=== PATIENT | male | born 1975 | race Caucasian/White ===

== ENCOUNTER → 2016-09-27 | Outpatient (CLI) | payer OTHER ==
[~2016-09-27] MED LIST: ATOR1TAB21 PO; DILA100C PO; ENAL20TA PO; ESCI10TA2 PO; MULT1TAB8 PO; OMEP40CA2 PO; TEGR200T PO
--- NOTE | 2016-09-27 12:07 | REP ---
SCROTAL ULTRASOUND: Real-time sonographic evaluation of the scrotum and contents performed. Testicles are normal in size and echotexture, right testicle measuring 4.8 x 2.4 x 3.4 cm and left testicle 4.4 x 2.5 x 3.3 cm. There are a few tiny scattered calcifications in the testicles. No testicular mass or torsion is seen. There is blood flow seen in each testicle with duplex Doppler evaluation, RI of the right testicle 0.57, left testicle 0.54. A couple of tiny cysts are seen in the head of the left epididymis. There are small hydroceles. IMPRESSION: No testicular mass or torsion. Signed by Vernon Drake MD 09/27/2016 04:37 P
== END ==
LOC: M SMT 09:32
PROVIDERS: ATTEND Nurse Practitioner Women's Health
DX: N50.819 Testicular pain, unspecified (principal)

== ENCOUNTER → 2017-03-29 | Outpatient (REF) ==
--- NOTE | 2017-03-30 01:03 | REP ---
Clinical: Pain and disability. Technique: AP, lateral, coned-down views of the lumbosacral spine. Findings: Mild chronic levoconvex scoliosis appreciated. Lordosis remains stable on the lateral projection. Advanced degenerative disc osteophyte complex at the L4-5 level includes marginal osteophytes, endplate sclerosis and disc space narrowing with hypertrophic facet changes. Moderate multilevel degenerative changes noted throughout the remainder of the lower thoracic and lumbosacral spine including minimal endplate sclerosis/irregularity with disc space narrowing. No acute fracture / compression injury or subluxation. Impression: Focal advanced degenerative changes at the L4-5 level with moderate degenerative changes noted at the remainder of the lumbar spine. 2. No acute fracture / compression injury or subluxation. Signed by Anibal Redman MD 03/30/2017 12:55 A
== END ==
LOC: M SMT 14:34
PROVIDERS: ATTEND Internal Medicine
DX: M51.36 Other intervertebral disc degeneration, lumbar region (principal)

== ENCOUNTER 2019-01-22 11:19 | Day surgery (SDC) | payer OTHER ==
[~2019-01-22] VITALS: Ht 193 cm; Wt 117.0 kg
[~2019-01-22 11:19] MED LIST changes: +BISAC5TA PO; +BREO1INH3 INH; +DESV100T3 PO; +DICY20TA11 PO; +HYDR-3713 PO; +IBUP80TA PO; +LIDOCAINE 2% INJ 100 MG/5 ML SDV (FOR ANES.) As Ordered ONE; +NS 1,000 ML IV ONE; -OMEP40CA2 PO; +OMEP40CA97 PO; +SUCR1TAB56 PO; +TAMS1CAP17 PO; +TRAZ150T90 PO; +VENTAER INH; +fentaNYL 100 MCG/2 ML INJECTION (J3010) As Ordered ONE; +propofoL 200 MG/20 ML VIAL As Ordered ONE
[2019-01-22] MEDS ORDERED: propofoL 200 MG/20 ML VIAL As Ordered ONE (13:39)
--- NOTE | 2019-01-22 14:28 | ROOR ---
Patient Name: Vicente Chan Procedure Date: 01/22/2019 1:12 PM Date of : 1975 Age: 43 Room: [facility] Gender: Male Note Status: Finalized Procedure: Upper GI endoscopy Indications: Dysphagia, Weight loss Providers: Kurt Marcum MD Referring MD: Nakul CA MD Requesting Provider: Medicines: Monitored Anesthesia Care Complications: No immediate complications. Procedure: Pre-Anesthesia Assessment: - Prior to the procedure, a History and Physical was performed, and patient medications and allergies were reviewed. The patient is competent. The risks and benefits of the procedure and the sedation options and risks were discussed with the patient. All questions were answered and informed consent was obtained. Patient identification and proposed procedure were verified by the physician, the nurse and the anesthesiologist in the procedure room. Mental Status Examination: alert and oriented. Airway Examination: normal oropharyngeal airway and neck mobility. Respiratory Examination: clear to auscultation. CV Examination: normal. Prophylactic Antibiotics: The patient does not require prophylactic antibiotics. Prior Anticoagulants: The patient has taken no previous anticoagulant or antiplatelet agents. ASA Grade Assessment: II - A patient with mild systemic disease. After reviewing the risks and benefits, the patient was deemed in satisfactory condition to undergo the procedure. The anesthesia plan was to use monitored anesthesia care (MAC). Immediately prior to administration of medications, the patient was re-assessed for adequacy to receive sedatives. The heart rate, respiratory rate, oxygen saturations, blood pressure, adequacy of pulmonary ventilation, and response to care were monitored throughout the procedure. The physical status of the patient was re-assessed after the procedure. The Endoscope was introduced through the mouth, and advanced to the second part of duodenum. The upper GI endoscopy was accomplished without difficulty. The patient tolerated the procedure well. Findings: The Z-line was irregular and was found 38 cm from the incisors. Normal mucosa was found in the entire esophagus. Two biopsies were obtained in the middle third of the esophagus with cold forceps for evaluation of eosinophilic esophagitis. Verification of patient identification for the specimen was done by the physician and nurse using the patient's name, date and medical record number. Estimated blood loss was minimal. A small hiatal hernia was present. Localized mild inflammation characterized by congestion (edema), erythema, granularity and shallow ulcerations was found in the gastric antrum. Four biopsies were obtained with cold forceps for histology from gastric ulcer in pre-pylori area, as well as two biopsies in the gastric antrum. The duodenal bulb and second portion of the duodenum were normal. Biopsies for histology were taken with a cold forceps for evaluation of celiac disease. Impression: - Z-line irregular, 38 cm from the incisors. - Normal mucosa was found in the entire esophagus. - Small hiatal hernia. - Gastritis. - Normal duodenal bulb and second portion of the duodenum. Biopsied. - Two biopsies were obtained in the middle third of the esophagus. - Biopsies performed from gastric ulcer in pre-pylori area and in the gastric antrum. Recommendation: - Patient has a contact number available for emergencies. The signs and symptoms of potential delayed complications were discussed with the patient. Return to normal activities tomorrow. Written discharge instructions were provided to the patient. - Resume previous diet. - Continue present medications. 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 - Await pathology results. - Return to GI clinic in [facility] (address [address], [address] [address]) in 4 -- 6 weeks. Please call GI clinic @ [phone] for apppointment date and time. - Return to primary care physician. Kurt Marcum MD Kurt Marcum MD 01/22/2019 2:28:24 PM Electronically signed by Kurt Marcum MD Number of Addenda: 0 Note Initiated On: 01/22/2019 1:12 PM Estimated Blood Loss: Estimated blood loss: none.
--- NOTE | 2019-01-22 14:31 | ROOR ---
Patient Name: Vicente Chan Procedure Date: 01/22/2019 1:13 PM Date of : 1975 Age: 43 Room: [facility] Gender: Male Note Status: Finalized Procedure: Colonoscopy Indications: Chronic diarrhea, Weight loss Providers: Kurt Marcum MD Referring MD: Nakul CA MD Requesting Provider: Medicines: Monitored Anesthesia Care Complications: No immediate complications. Procedure: Pre-Anesthesia Assessment: - Prior to the procedure, a History and Physical was performed, and patient medications and allergies were reviewed. The patient is competent. The risks and benefits of the procedure and the sedation options and risks were discussed with the patient. All questions were answered and informed consent was obtained. Patient identification and proposed procedure were verified by the physician, the nurse and the anesthesiologist in the procedure room. Mental Status Examination: alert and oriented. Airway Examination: normal oropharyngeal airway and neck mobility. Respiratory Examination: clear to auscultation. CV Examination: normal. Prophylactic Antibiotics: The patient does not require prophylactic antibiotics. Prior Anticoagulants: The patient has taken no previous anticoagulant or antiplatelet agents. ASA Grade Assessment: II - A patient with mild systemic disease. After reviewing the risks and benefits, the patient was deemed in satisfactory condition to undergo the procedure. The anesthesia plan was to use monitored anesthesia care (MAC). Immediately prior to administration of medications, the patient was re-assessed for adequacy to receive sedatives. The heart rate, respiratory rate, oxygen saturations, blood pressure, adequacy of pulmonary ventilation, and response to care were monitored throughout the procedure. The physical status of the patient was re-assessed after the procedure. The Colonoscope was introduced through the anus and advanced to the terminal ileum, with identification of the appendiceal orifice and IC valve. The colonoscopy was performed without difficulty. The patient tolerated the procedure well. The quality of the bowel preparation was fair. The terminal ileum, ileocecal valve, appendiceal orifice, and rectum were photographed. Scope insertion time was 4 minutes. Scope withdrawal time was 8 minutes. The total duration of the procedure was 12 minutes. Findings: The perianal and digital rectal examinations were normal. The terminal ileum appeared normal. Normal mucosa was found in the entire colon. Biopsies for histology were taken with a cold forceps from the right colon, left colon and rectosigmoid colon for evaluation of microscopic colitis. Verification of patient identification for the specimen was done by the physician and nurse using the patient's name, date and medical record number. Estimated blood loss was minimal. Non-bleeding external and internal hemorrhoids were found during retroflexion. The hemorrhoids were medium-sized. Impression: - The examined portion of the ileum was normal. - Normal mucosa in the entire examined colon. Biopsied. - Non-bleeding external and internal hemorrhoids. Recommendation: - Patient has a contact number available for emergencies. The signs and symptoms of potential delayed complications were discussed with the patient. Return to normal activities tomorrow. Written discharge instructions were provided to the patient. - High fiber diet. - Continue present medications. - Await pathology results. - Repeat colonoscopy in 5-10 years for screening purposes and because the bowel preparation was suboptimal. - Return to GI clinic in [facility] (address [address], [address], [place], [facility]) in 4 -- 6 weeks. Please call GI clinic @ [phone] for apppointment date and time. - Return to primary care physician. Kurt Marcum MD Kurt Marcum MD 01/22/2019 2:31:38 PM Electronically signed by Kurt Marcum MD Number of Addenda: 0 Note Initiated On: 01/22/2019 1:13 PM Estimated Blood Loss: Estimated blood loss was minimal.
[2019-01-22 14:35] VITALS: BP 125/92
== END 2019-01-22 14:45 | disposition home or self-care (01) ==
LOC: M OPP 11:19
PROVIDERS: ATTEND Internal Medicine Gastroenterology
DX: R19.7 Diarrhea, unspecified (principal); K64.8 Other hemorrhoids; K22.8 Other specified diseases of esophagus; K44.9 Diaphragmatic hernia without obstruction or gangrene; K29.70 Gastritis, unspecified, without bleeding; R63.4 Abnormal weight loss; R13.10 Dysphagia, unspecified
CPT/HCPCS: 43239; 45380; 88305; J3010

== ENCOUNTER → 2019-09-11 | Outpatient (CLI) | payer OTHER ==
[~2019-09-11] MED LIST changes: -LIDOCAINE 2% INJ 100 MG/5 ML SDV (FOR ANES.) As Ordered ONE; -NS 1,000 ML IV ONE; -fentaNYL 100 MCG/2 ML INJECTION (J3010) As Ordered ONE; -propofoL 200 MG/20 ML VIAL As Ordered ONE
--- NOTE | 2019-09-11 11:20 | REP ---
Clinical: Dyspnea . Comparison: None . Technique: PA and lateral. Findings: The mediastinum and cardiac silhouette are normal. The lung galindo are clear and without acute consolidation, effusion, or pneumothorax. The skeletal structures are intact and normal. Impression: 1. No acute cardiopulmonary process. Electronically Signed by Anibal Redman MD 09/11/2019 11:12 A
== END ==
LOC: M RAD 10:50
PROVIDERS: ATTEND Internal Medicine Pulmonary Disease
DX: R06.00 Dyspnea, unspecified (principal)

== ENCOUNTER → 2019-12-16 | Outpatient (CLI) | payer OTHER ==
--- NOTE | 2019-12-21 19:28 | SLEEPCENT ---
DATE OF PROCEDURE: 12/16/2019 ORDERED BY: Iván Quintana PA-C Nocturnal polysomnography was performed for evaluation of sleep physiology in this patient with a history of excessive somnolence, snoring and nonrestorative sleep who has comorbidities of hypertension and chronic back pain. 7 hours and 6 minutes of data were reviewed. There were 392 minutes of sleep identified. Sleep latency was short at 7 minutes. Rapid eye movement (REM) latency was delayed at 181 minutes. Sleep architecture showed poor progression and some fragmentation was seen. Overall sleep efficiency was 92.9%. There was only one REM cycle noted. The patient's electrocardiogram showed a sinus rhythm with an average heart rate of 56 beats per minute. EEG showed some coarsening in background. No focal events were identified. There were normal waveforms for awake and sleep stages. There were 67 respiratory events identified of 10 seconds in duration or greater for an apnea-hypopnea index of 10.3. The events were more frequently central than obstructive with 38 mixed and central events of the 67 total. The events were not exclusive to sleep stage nor body posture. Arousals from respiratory events occurred 1.7 times per hour, oxygen saturations remained into the 90s. There was some limb activity. Limb movement arousal index was only 2.8. 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 Apnea-hypopnea index 10.3. RECOMMENDATIONS: The patient should be encouraged to return to the sleep disorder center for pressure therapy. Given the complex nature of the disease, a bilevel device and backup rate may be necessary. In the interim, alcohol and sedative avoidance should be practiced and caution exercised during the operation of motor vehicles.
== END ==
LOC: M SLEEP 20:00
PROVIDERS: ATTEND Physician Assistant
DX: G47.33 Obstructive sleep apnea (adult) (pediatric) (principal); G47.31 Primary central sleep apnea

== ENCOUNTER → 2020-06-25 | Outpatient (CLI) | payer OTHER ==
[~2020-06-25] MED LIST changes: -ENAL20TA PO; +ENAL20TA11 PO
--- NOTE | 2020-06-26 16:45 | SLEEPCENT ---
DATE: 06/25/2020 ORDERED BY: Iván Quintana Nocturnal polysomnography was performed for the titration of pressure therapy in this patient with obstructive sleep apnea syndrome, apnea-hypopnea index 10.3. For testing, patient was fit with a ResMed AirFit F20 full-face mask of medium size. There was 4 cm of water pressure applied to the circuit, and the lights were extinguished. There was 8 hours and 11 minutes of data reviewed. There was 441.5 minutes of sleep identified. Sleep latency was normal at 11.5 minutes. REM sleep was delayed at 220 minutes. Sleep architecture improved as pressure was optimized. Overall sleep efficiency was 90.8%. The electrocardiogram showed a sinus rhythm with an average heart rate of 50 beats per minute. EEG showed normal waveforms for wake and sleep. Respiratory events were well palliated with CPAP at a pressure of +9. There was some activity in the limb leads, particularly early in the study. Limb movement arousal index was 2. IMPRESSION: Obstructive sleep apnea syndrome (G47.33). RECOMMENDATION: Nightly use of pressure therapy, 9 cm of water.
== END ==
LOC: M SLEEP 20:00
PROVIDERS: ATTEND Physician Assistant
DX: G47.33 Obstructive sleep apnea (adult) (pediatric) (principal)

== ENCOUNTER → 2020-10-27 | Outpatient (REF) | payer OTHER ==
[~2020-10-27] MED LIST changes: +ESCI10TA16 PO; -ESCI10TA2 PO
== END ==
LOC: M SFHCPLAZ 15:11
PROVIDERS: ATTEND Family Medicine
DX: Z53.20 Procedure and treatment not carried out because of patient's decision for unspecified reasons (principal)

== ENCOUNTER → 2020-11-25 | Outpatient (REF) | payer OTHER ==
[2020-11-25 14:21] LABS: PARTIAL THROMBOPLASTIN TIME 64.7 SECONDS (24.2-38.5)
[2020-11-25 14:38] LABS: INR 0.9; PROTHROMBIN TIME 12.3 SECONDS (12.5-14.3)
== END ==
LOC: M SFHCPLAZ 10:05
PROVIDERS: ATTEND Family Medicine
DX: R79.1 Abnormal coagulation profile (principal)